=== PATIENT | female | born 1990 | race African-American/Black ===

== ENCOUNTER 2025-02-19 18:23 | Emergency (ER) | payer SELFPAY ==
[~2025-02-19] VITALS: Ht 157.5 cm; Wt 91.0 kg
[2025-02-19 18:27] VITALS: O2SAT 100
[2025-02-19 18:31] VITALS: BP 148/93; PULSE 100; RESP 18; TEMP 37.5; O2SAT 100
== END 2025-02-19 21:06 | disposition left against medical advice (07) ==
LOC: ER 18:23
DX: Z00.00 Encounter for general adult medical examination without abnormal findings (principal); Z53.21 Procedure and treatment not carried out due to patient leaving prior to being seen by health care provider; Z79.899 Other long term (current) drug therapy
CPT/HCPCS: 71045; 93005; 99281; A4606